=== PATIENT | male | born 1935 | race Caucasian/White ===

== ENCOUNTER 2016-12-04 20:05 | Inpatient (IN) | payer MEDICARE ==
[~2016-12-04] VITALS: Ht 162.6 cm; Wt 72.2 kg
[~2016-12-04 20:05] MED LIST: ALBU18HF INH; ALBU8.5H3 INH; ASPI-515 PO; ASPI-770 PO; ATOR10TA PO; ATOR10TA9 PO; CHOL10003 PO; CHOL20003 PO; DOCU-30 PO; GLIP5TAB10 PO; HYDR25TA6 PO; LEVO100T PO; LEVO100T5 PO; LOSA1TAB17 PO; LOSA50TA2 PO; METF500T4 PO; METO-93 PO; OMEP-110 PO; PANT40TA5 PO; POLY17PO5 PO; SIMV10TA3 PO; TOPI25CA PO
[2016-12-04] MEDS ORDERED: MECLIZINE CHEWABLE 25 MG TAB PO ONE (22:00)
[2016-12-04 22:31] LABS: BLOOD UREA NITROGEN 9 mg/dL (7-18)
[2016-12-04 22:39] LABS: IS PT STATUS REG ER OR PRE ER? YES
[2016-12-05] MEDS ORDERED: DOCUSATE 100 MG CAPSULE PO PRN (01:30)
[2016-12-05] MEDS ORDERED: TEMPLATE NON-FORMULARY MED. (Albuterol Sulfate (Ventolin Hfa) 2 PUFF(S)) INH PRN (01:30)
[2016-12-05] MEDS ORDERED: ALBUTEROL SULFATE 2.5 MG/3 ML HHN PRN (01:30)
[2016-12-05] MEDS ORDERED: ONDANSETRON 2MG/ML, 2ML IVPush PRN (01:30)
[2016-12-05 02:00] VITALS: BP 140/93
[2016-12-05] MEDS: SODIUM CHLORIDE 0.9% 1,000 ML IV SCH ×3 (03:31→23:37)
[2016-12-05 04:03] VITALS: BP 140/93
[2016-12-05] MEDS: ENOXAPARIN 40 MG/0.4 ML SQ SCH (06:02)
[2016-12-05] MEDS: LEVOTHYROXINE 100 MCG TABLET PO SCH (06:02)
[2016-12-05 06:06] LABS: IS PT STATUS REG ER OR PRE ER? NO
[2016-12-05 07:49] VITALS: BP 144/83
[2016-12-05] MEDS ORDERED: CHOLECALCIFEROL 1,000 UNIT TABLET PO SCH (09:00)
[2016-12-05] MEDS: HYDROCHLOROTHIAZIDE 25 MG TABLET PO SCH (09:42)
[2016-12-05] MEDS: ASPIRIN 81 MG TABLET EC PO SCH (09:42)
[2016-12-05] MEDS: LOSARTAN 50MG TABLET PO SCH (09:42)
[2016-12-05] MEDS: CHOLECALCIFEROL 1,000 UNIT TABLET PO SCH ×3 (09:42→21:22)
[2016-12-05] MEDS: OMEPRAZOLE 20 MG CAPSULE.DR PO SCH ×2 (09:42→21:22)
[2016-12-05] MEDS: METOPROLOL SUCCINATE 50 MG TAB.ER.24H PO SCH (09:42)
[2016-12-05 11:02] LABS: IS PT STATUS REG ER OR PRE ER? NO
[2016-12-05] MEDS: ACETAMINOPHEN 325 MG TABLET PO PRN (12:39)
[2016-12-05 12:58] VITALS: BP 161/94
[2016-12-05 20:42] VITALS: BP 137/80
[2016-12-05] MEDS: SIMVASTATIN 10 MG TABLET PO SCH (21:22)
[2016-12-06 02:15] VITALS: BP 143/83
[2016-12-06 05:13] LABS: BLOOD UREA NITROGEN 10 mg/dL (7-18)
[2016-12-06] MEDS: LEVOTHYROXINE 100 MCG TABLET PO SCH (05:27)
[2016-12-06] MEDS: ENOXAPARIN 40 MG/0.4 ML SQ SCH (05:27)
[2016-12-06 07:41] VITALS: BP 166/89
[2016-12-06] MEDS: SODIUM CHLORIDE 0.9% 1,000 ML IV SCH ×2 (09:35→20:34)
[2016-12-06] MEDS: CHOLECALCIFEROL 1,000 UNIT TABLET PO SCH ×3 (09:43→20:34)
[2016-12-06] MEDS: METOPROLOL SUCCINATE 50 MG TAB.ER.24H PO SCH (09:44)
[2016-12-06] MEDS: HYDROCHLOROTHIAZIDE 25 MG TABLET PO SCH (09:44)
[2016-12-06] MEDS: OMEPRAZOLE 20 MG CAPSULE.DR PO SCH ×2 (09:44→20:34)
[2016-12-06] MEDS: ASPIRIN 81 MG TABLET EC PO SCH (09:46)
[2016-12-06] MEDS: LOSARTAN 50MG TABLET PO SCH (09:46)
[2016-12-06] MEDS: ACETAMINOPHEN 325 MG TABLET PO PRN (09:48)
[2016-12-06] MEDS: methylPREDNISolone 4mg DOSE PACK PO SCH (13:10)
[2016-12-06 13:46] VITALS: BP 169/88
[2016-12-06 20:00] VITALS: BP 149/75
[2016-12-06] MEDS: SIMVASTATIN 10 MG TABLET PO SCH (20:34)
[2016-12-07 02:00] VITALS: BP 155/81
[2016-12-07] MEDS: ENOXAPARIN 40 MG/0.4 ML SQ SCH (05:18)
[2016-12-07] MEDS: SODIUM CHLORIDE 0.9% 1,000 ML IV SCH ×2 (05:18→15:48)
[2016-12-07] MEDS: LEVOTHYROXINE 100 MCG TABLET PO SCH (05:18)
[2016-12-07 07:03] VITALS: BP 155/80
[2016-12-07] MEDS: ASPIRIN 81 MG TABLET EC PO SCH (08:07)
[2016-12-07] MEDS: LOSARTAN 50MG TABLET PO SCH (08:07)
[2016-12-07] MEDS: OMEPRAZOLE 20 MG CAPSULE.DR PO SCH ×2 (08:08→21:04)
[2016-12-07] MEDS: CHOLECALCIFEROL 1,000 UNIT TABLET PO SCH ×3 (08:08→21:04)
[2016-12-07] MEDS: HYDROCHLOROTHIAZIDE 25 MG TABLET PO SCH (08:08)
[2016-12-07] MEDS: METOPROLOL SUCCINATE 50 MG TAB.ER.24H PO SCH (08:34)
[2016-12-07] MEDS ORDERED: GADOBUTROL 7.5 MMOL/7.5 ML PFS ONE (13:48)
[2016-12-07 14:29] VITALS: BP 151/78
[2016-12-07 18:45] VITALS: BP 162/86
[2016-12-07] MEDS: SIMVASTATIN 10 MG TABLET PO SCH (21:04)
[2016-12-07] MEDS: methylPREDNISolone 4mg DOSE PACK PO SCH (21:04)
[2016-12-08 00:49] VITALS: BP 168/88
[2016-12-08] MEDS: SODIUM CHLORIDE 0.9% 1,000 ML IV SCH (01:33)
[2016-12-08] MEDS: LEVOTHYROXINE 100 MCG TABLET PO SCH (05:28)
[2016-12-08] MEDS: ENOXAPARIN 40 MG/0.4 ML SQ SCH (05:28)
[2016-12-08 05:33] LABS: BLOOD UREA NITROGEN 15 mg/dL (7-18)
[2016-12-08 08:04] VITALS: BP 177/92
[2016-12-08] MEDS: methylPREDNISolone 4mg DOSE PACK PO SCH (08:18)
[2016-12-08] MEDS: ASPIRIN 81 MG TABLET EC PO SCH (08:19)
[2016-12-08] MEDS: LOSARTAN 50MG TABLET PO SCH (08:20)
[2016-12-08] MEDS: HYDROCHLOROTHIAZIDE 25 MG TABLET PO SCH (08:20)
[2016-12-08] MEDS: CHOLECALCIFEROL 1,000 UNIT TABLET PO SCH (08:20)
[2016-12-08] MEDS: OMEPRAZOLE 20 MG CAPSULE.DR PO SCH (08:20)
[2016-12-08] MEDS ORDERED: METOPROLOL SUCCINATE 25 MG TAB.ER.24H PO SCH (09:00)
[2016-12-08] MEDS ORDERED: TRAM50TA2 PO (10:35)
[2016-12-08] MEDS ORDERED: METH4TAB6 PO (10:35)
[2016-12-08] MEDS ORDERED: METO25TA91 PO (10:35)
== END 2016-12-08 14:01 | DRG 552 ==
LOC: ED 23:59 → EDIP 12-05 01:05 → 4EST 12-05 02:10
PROVIDERS: ADMIT Hospitalist; ATTEND Hospitalist
DX: M48.06 Spinal stenosis, lumbar region (principal); I24.8 Other forms of acute ischemic heart disease; M48.50XA Collapsed vertebra, not elsewhere classified, site unspecified, initial encounter for fracture; I10 Essential (primary) hypertension; E78.5 Hyperlipidemia, unspecified; E03.9 Hypothyroidism, unspecified; E11.9 Type 2 diabetes mellitus without complications; E78.00 Pure hypercholesterolemia, unspecified; H91.10 Presbycusis, unspecified ear; K21.9 Gastro-esophageal reflux disease without esophagitis; K44.9 Diaphragmatic hernia without obstruction or gangrene; K57.90 Diverticulosis of intestine, part unspecified, without perforation or abscess without bleeding; R00.1 Bradycardia, unspecified; M48.07 Spinal stenosis, lumbosacral region; M25.78 Osteophyte, vertebrae; N28.1 Cyst of kidney, acquired; Z87.442 Personal history of urinary calculi; Z90.49 Acquired absence of other specified parts of digestive tract; M51.16 Intervertebral disc disorders with radiculopathy, lumbar region; T44.7X5A Adverse effect of beta-adrenoreceptor antagonists, initial encounter
CPT/HCPCS: 36415; 71020; 72131; 72158; 80048; 82040; 84484; 85025; 93005; A9585; J1650; J7509; J7030

== ENCOUNTER 2017-06-29 19:10 | Inpatient (IN) | payer MEDICARE, MEDICAID ==
[~2017-06-29] VITALS: Ht 165.1 cm; Wt 72.6 kg
[~2017-06-29 19:10] MED LIST changes: -ALBU8.5H3 INH; +ALBU8.5H8 INH; +CHOL2000 PO; -CHOL20003 PO; +DOCU-131 PO; -DOCU-30 PO; -LOSA1TAB17 PO; +LOSA1TAB22 PO; +METH4TAB6 PO; +METO25TA91 PO; +TRAM50TA2 PO
[2017-06-29] MEDS ORDERED: FAMO-79 PO (19:56)
[2017-06-29] MEDS ORDERED: QUET25TA PO (19:56)
[2017-06-29 19:59] LABS: HEMATOCRIT 42.6 % (39.2-51.8); HEMOGLOBIN 14.5 g/dL (13.7-18.0); WHITE BLOOD COUNT 7.8 x10^3/uL (3.4-10)
[2017-06-29] MEDS ORDERED: SODIUM CHLORIDE 0.9% 1,000ML IVBOLUS ONE (20:00)
[2017-06-29 20:09] LABS: BLOOD UREA NITROGEN 20 mg/dL (7-18)
[2017-06-29 20:15] LABS: ASPARTATE AMINO TRANSFERASE 12 U/L (15-37); IS PT STATUS REG ER OR PRE ER? YES
[2017-06-29] MEDS ORDERED: OMNIPAQUE 350 MG/ML, 100ML BOTTLE ONE (21:33)
[2017-06-29] MEDS: SODIUM CHLORIDE 0.9% 1,000 ML IV SCH (22:51)
[2017-06-29] MEDS ORDERED: ONDANSETRON 2MG/ML, 2ML IVPush PRN (23:00)
[2017-06-29] MEDS ORDERED: DOCUSATE 100 MG CAPSULE PO PRN (23:00)
[2017-06-29] MEDS ORDERED: ACETAMINOPHEN 325 MG TABLET PO PRN (23:00)
[2017-06-29 23:07] VITALS: BP 141/88
[2017-06-29] MEDS ORDERED: POTASSIUM CHLORIDE 20 MEQ TAB.ER.PRT PO ONE (23:30)
[2017-06-29] MEDS: FAMOTIDINE 20 MG TABLET PO SCH (23:40)
[2017-06-29] MEDS: HYDROCHLOROTHIAZIDE 25 MG TABLET PO SCH (23:40)
[2017-06-29] MEDS: HEPARIN 5,000 UNITS/ML, 1ML SQ SCH (23:40)
[2017-06-30 02:06] VITALS: BP 131/74
[2017-06-30] MEDS: LEVOTHYROXINE 100 MCG TABLET PO SCH (05:40)
[2017-06-30 07:19] LABS: IS PT STATUS REG ER OR PRE ER? NO
[2017-06-30 07:39] VITALS: BP 121/72
[2017-06-30] MEDS ORDERED: REGADENOSON 0.4 MG/5 ML SYRINGE ONE (07:45)
[2017-06-30] MEDS: HYDROCHLOROTHIAZIDE 25 MG TABLET PO SCH (08:03)
[2017-06-30] MEDS: FAMOTIDINE 20 MG TABLET PO SCH (08:03)
[2017-06-30] MEDS: HEPARIN 5,000 UNITS/ML, 1ML SQ SCH ×3 (08:03→23:14)
[2017-06-30] MEDS: LOSARTAN 50MG TABLET PO SCH (08:04)
[2017-06-30] MEDS: SODIUM CHLORIDE 0.9% 1,000 ML IV SCH (10:18)
[2017-06-30] MEDS ORDERED: DEXTROSE 50%, 50ML SYRINGE IVPush PRN (12:30)
[2017-06-30] MEDS ORDERED: ALBUTEROL HFA 90 MCG/SPRAY INH PRN (12:30)
[2017-06-30] MEDS ORDERED: POLYETHYLENE GLYCOL 17 GM PACKET PO PRN (12:30)
[2017-06-30] MEDS ORDERED: GLUCAGON 1 MG IM PRN (12:30)
[2017-06-30] MEDS ORDERED: DEXTROSE 4 GM TAB.CHEW PO PRN (12:30)
[2017-06-30] MEDS: INSULIN ASPART 100 UNITS/ML, PEN SQ-INSULIN SCH ×3 (13:00→20:48)
[2017-06-30 14:15] VITALS: BP 108/65
[2017-06-30] MEDS ORDERED: INSULIN ASPART 100 UNITS/ML, PEN SQ-INSULIN SCH (16:00)
[2017-06-30 19:52] VITALS: BP 108/59
[2017-06-30] MEDS: SODIUM CHLORIDE FLUSH 10ML SYR IVF SCH (20:47)
[2017-06-30] MEDS: QUETIAPINE 25MG TABLET PO SCH (20:47)
[2017-06-30] MEDS: ATORVASTATIN 10 MG TABLET PO SCH (20:47)
[2017-06-30] MEDS: CHOLECALCIFEROL 1,000 UNIT TABLET PO SCH (20:47)
[2017-06-30] MEDS: TOPIRAMATE 25 MG TABLET PO SCH (20:47)
[2017-06-30] MEDS: OMEPRAZOLE 20 MG CAPSULE.DR PO SCH (20:47)
[2017-07-01 00:35] VITALS: BP 110/58
[2017-07-01 02:05] LABS: IS PT STATUS REG ER OR PRE ER? NO
[2017-07-01] MEDS: HEPARIN 5,000 UNITS/ML, 1ML SQ SCH ×3 (06:23→22:00)
[2017-07-01] MEDS: LEVOTHYROXINE 100 MCG TABLET PO SCH (06:23)
[2017-07-01 06:27] LABS: BLOOD UREA NITROGEN 15 mg/dL (7-18)
[2017-07-01 06:36] LABS: IS PT STATUS REG ER OR PRE ER? NO
[2017-07-01] MEDS: INSULIN ASPART 100 UNITS/ML, PEN SQ-INSULIN SCH ×4 (07:00→21:00)
[2017-07-01 08:07] VITALS: BP 117/67
[2017-07-01] MEDS: METOPROLOL SUCCINATE 25 MG TAB.ER.24H PO SCH (09:07)
[2017-07-01] MEDS: LOSARTAN 50MG TABLET PO SCH (09:07)
[2017-07-01] MEDS: HYDROCHLOROTHIAZIDE 25 MG TABLET PO SCH (09:08)
[2017-07-01] MEDS: OMEPRAZOLE 20 MG CAPSULE.DR PO SCH ×2 (09:08→21:52)
[2017-07-01] MEDS: ASPIRIN 81 MG TABLET EC PO SCH (09:08)
[2017-07-01] MEDS: CHOLECALCIFEROL 1,000 UNIT TABLET PO SCH ×2 (09:08→21:52)
[2017-07-01] MEDS: TOPIRAMATE 25 MG TABLET PO SCH ×2 (09:08→21:52)
[2017-07-01] MEDS: SODIUM CHLORIDE FLUSH 10ML SYR IVF SCH ×2 (09:08→21:52)
[2017-07-01] MEDS ORDERED: POTASSIUM CHLORIDE 20 MEQ TAB.ER.PRT PO ONE (09:30)
[2017-07-01 13:48] VITALS: BP 110/72
[2017-07-01] MEDS: TAMSULOSIN 0.4 MG CAP.ER.24H PO SCH (16:21)
[2017-07-01 19:27] VITALS: BP 102/53
[2017-07-01] MEDS: ATORVASTATIN 10 MG TABLET PO SCH (21:52)
[2017-07-01] MEDS: QUETIAPINE 25MG TABLET PO SCH (21:52)
[2017-07-02 01:34] VITALS: BP 97/58
[2017-07-02 05:27] VITALS: BP 105/67
[2017-07-02] MEDS: LEVOTHYROXINE 100 MCG TABLET PO SCH (05:28)
[2017-07-02] MEDS: HEPARIN 5,000 UNITS/ML, 1ML SQ SCH ×3 (05:28→20:08)
[2017-07-02] MEDS: INSULIN ASPART 100 UNITS/ML, PEN SQ-INSULIN SCH ×4 (07:00→20:19)
[2017-07-02 07:50] VITALS: BP 102/63
[2017-07-02] MEDS: HYDROCHLOROTHIAZIDE 25 MG TABLET PO SCH (08:03)
[2017-07-02] MEDS: TOPIRAMATE 25 MG TABLET PO SCH ×2 (08:03→20:07)
[2017-07-02] MEDS: TAMSULOSIN 0.4 MG CAP.ER.24H PO SCH (08:03)
[2017-07-02] MEDS: CHOLECALCIFEROL 1,000 UNIT TABLET PO SCH ×2 (08:03→20:08)
[2017-07-02] MEDS: ASPIRIN 81 MG TABLET EC PO SCH (08:03)
[2017-07-02] MEDS: OMEPRAZOLE 20 MG CAPSULE.DR PO SCH ×2 (08:03→20:07)
[2017-07-02] MEDS: SODIUM CHLORIDE FLUSH 10ML SYR IVF SCH ×2 (08:04→20:07)
[2017-07-02] MEDS: LOSARTAN 50MG TABLET PO SCH (08:04)
[2017-07-02] MEDS: METOPROLOL SUCCINATE 25 MG TAB.ER.24H PO SCH (08:04)
[2017-07-02 14:11] VITALS: BP 86/57
[2017-07-02 20:02] VITALS: BP_SYST 77; BP_SYST 88; BP_DIAS 49; BP_DIAS 52
[2017-07-02] MEDS: QUETIAPINE 25MG TABLET PO SCH (20:07)
[2017-07-02] MEDS: ATORVASTATIN 10 MG TABLET PO SCH (20:08)
[2017-07-03 01:55] VITALS: BP 93/56
[2017-07-03] MEDS: HEPARIN 5,000 UNITS/ML, 1ML SQ SCH ×3 (06:06→22:23)
[2017-07-03] MEDS: LEVOTHYROXINE 100 MCG TABLET PO SCH (06:07)
[2017-07-03 07:27] VITALS: BP 110/70
[2017-07-03] MEDS: INSULIN ASPART 100 UNITS/ML, PEN SQ-INSULIN SCH ×5 (08:56→22:22)
[2017-07-03] MEDS: TOPIRAMATE 25 MG TABLET PO SCH ×2 (09:05→22:22)
[2017-07-03] MEDS: CHOLECALCIFEROL 1,000 UNIT TABLET PO SCH ×2 (09:05→22:22)
[2017-07-03] MEDS: METOPROLOL SUCCINATE 25 MG TAB.ER.24H PO SCH (09:06)
[2017-07-03] MEDS: HYDROCHLOROTHIAZIDE 25 MG TABLET PO SCH (09:06)
[2017-07-03] MEDS: LOSARTAN 50MG TABLET PO SCH (09:06)
[2017-07-03] MEDS: ASPIRIN 81 MG TABLET EC PO SCH (09:06)
[2017-07-03] MEDS: TAMSULOSIN 0.4 MG CAP.ER.24H PO SCH (09:06)
[2017-07-03] MEDS: SODIUM CHLORIDE FLUSH 10ML SYR IVF SCH ×2 (09:07→22:21)
[2017-07-03] MEDS: OMEPRAZOLE 20 MG CAPSULE.DR PO SCH ×2 (09:07→22:21)
[2017-07-03 13:03] VITALS: BP 91/55
[2017-07-03 20:28] VITALS: BP 92/56
[2017-07-03] MEDS: ATORVASTATIN 10 MG TABLET PO SCH (22:21)
[2017-07-03] MEDS: QUETIAPINE 25MG TABLET PO SCH (22:22)
[2017-07-04 01:58] VITALS: BP 90/54
[2017-07-04] MEDS: LEVOTHYROXINE 100 MCG TABLET PO SCH (06:22)
[2017-07-04] MEDS: HEPARIN 5,000 UNITS/ML, 1ML SQ SCH ×3 (06:22→22:26)
[2017-07-04] MEDS: INSULIN ASPART 100 UNITS/ML, PEN SQ-INSULIN SCH ×4 (07:29→20:08)
[2017-07-04 07:30] VITALS: BP 95/60
[2017-07-04] MEDS: HYDROCHLOROTHIAZIDE 25 MG TABLET PO SCH (08:35)
[2017-07-04] MEDS: METOPROLOL SUCCINATE 25 MG TAB.ER.24H PO SCH (08:35)
[2017-07-04] MEDS: LOSARTAN 50MG TABLET PO SCH (08:35)
[2017-07-04] MEDS: TAMSULOSIN 0.4 MG CAP.ER.24H PO SCH (08:49)
[2017-07-04] MEDS: CHOLECALCIFEROL 1,000 UNIT TABLET PO SCH ×2 (08:49→20:06)
[2017-07-04] MEDS: TOPIRAMATE 25 MG TABLET PO SCH ×2 (08:49→20:06)
[2017-07-04] MEDS: OMEPRAZOLE 20 MG CAPSULE.DR PO SCH ×2 (08:49→20:06)
[2017-07-04] MEDS: ASPIRIN 81 MG TABLET EC PO SCH (08:49)
[2017-07-04] MEDS: SODIUM CHLORIDE FLUSH 10ML SYR IVF SCH ×2 (08:49→20:06)
[2017-07-04] MEDS ORDERED: LOSA50TA2 PO (12:04)
[2017-07-04] MEDS ORDERED: TAMS-11 PO (12:04)
[2017-07-04 13:57] VITALS: BP 85/52
[2017-07-04 20:00] VITALS: BP 98/57
[2017-07-04] MEDS: ATORVASTATIN 10 MG TABLET PO SCH (20:06)
[2017-07-04] MEDS: QUETIAPINE 25MG TABLET PO SCH (20:06)
[2017-07-05 01:16] VITALS: BP 94/60
[2017-07-05] MEDS: LEVOTHYROXINE 100 MCG TABLET PO SCH (06:18)
[2017-07-05] MEDS: HEPARIN 5,000 UNITS/ML, 1ML SQ SCH ×3 (06:18→22:13)
[2017-07-05 07:54] VITALS: BP 108/66
[2017-07-05] MEDS: CHOLECALCIFEROL 1,000 UNIT TABLET PO SCH ×2 (08:00→19:43)
[2017-07-05] MEDS: TOPIRAMATE 25 MG TABLET PO SCH ×2 (08:00→19:44)
[2017-07-05] MEDS: TAMSULOSIN 0.4 MG CAP.ER.24H PO SCH (08:00)
[2017-07-05] MEDS: METOPROLOL SUCCINATE 25 MG TAB.ER.24H PO SCH (08:00)
[2017-07-05] MEDS: INSULIN ASPART 100 UNITS/ML, PEN SQ-INSULIN SCH ×4 (08:00→22:14)
[2017-07-05] MEDS: ASPIRIN 81 MG TABLET EC PO SCH (08:00)
[2017-07-05] MEDS: OMEPRAZOLE 20 MG CAPSULE.DR PO SCH ×2 (08:00→19:44)
[2017-07-05] MEDS: SODIUM CHLORIDE FLUSH 10ML SYR IVF SCH ×2 (08:01→19:44)
[2017-07-05] MEDS ORDERED: LOSARTAN 50MG TABLET PO SCH (09:00)
[2017-07-05 13:26] VITALS: BP 82/60
[2017-07-05] MEDS ORDERED: SODIUM CHLORIDE 0.9%, 500ML IVBOLUS ONE (14:30)
[2017-07-05 14:32] VITALS: BP 104/51
[2017-07-05] MEDS ORDERED: POTASSIUM CHLORIDE 20 MEQ TAB.ER.PRT PO ONE (15:00)
[2017-07-05 15:36] LABS: BLOOD UREA NITROGEN 28 mg/dL (7-18)
[2017-07-05 19:07] VITALS: BP 109/66
[2017-07-05] MEDS: metFORMIN 500 MG TABLET PO SCH (19:43)
[2017-07-05] MEDS: QUETIAPINE 25MG TABLET PO SCH (19:44)
[2017-07-05] MEDS: ATORVASTATIN 10 MG TABLET PO SCH (19:44)
[2017-07-05 23:45] VITALS: BP 107/71
[2017-07-06 04:40] LABS: HEMATOCRIT 42.1 % (39.2-51.8); HEMOGLOBIN 14.2 g/dL (13.7-18.0); WHITE BLOOD COUNT 6.7 x10^3/uL (3.4-10)
[2017-07-06 04:42] LABS: BLOOD UREA NITROGEN 28 mg/dL (7-18)
[2017-07-06 04:44] VITALS: BP 101/66
[2017-07-06] MEDS: LEVOTHYROXINE 100 MCG TABLET PO SCH (05:46)
[2017-07-06] MEDS: HEPARIN 5,000 UNITS/ML, 1ML SQ SCH ×2 (05:47→14:00)
[2017-07-06] MEDS: INSULIN ASPART 100 UNITS/ML, PEN SQ-INSULIN SCH ×3 (06:48→16:00)
[2017-07-06 07:12] VITALS: BP_SYST 105; BP_SYST 136; BP_DIAS 65; BP_DIAS 86
[2017-07-06] MEDS: CHOLECALCIFEROL 1,000 UNIT TABLET PO SCH (08:59)
[2017-07-06] MEDS: TOPIRAMATE 25 MG TABLET PO SCH (08:59)
[2017-07-06] MEDS: METOPROLOL SUCCINATE 25 MG TAB.ER.24H PO SCH (08:59)
[2017-07-06] MEDS: TAMSULOSIN 0.4 MG CAP.ER.24H PO SCH (08:59)
[2017-07-06] MEDS: OMEPRAZOLE 20 MG CAPSULE.DR PO SCH (08:59)
[2017-07-06] MEDS: metFORMIN 500 MG TABLET PO SCH (08:59)
[2017-07-06] MEDS: ASPIRIN 81 MG TABLET EC PO SCH (09:00)
[2017-07-06] MEDS: SODIUM CHLORIDE FLUSH 10ML SYR IVF SCH (09:00)
[2017-07-06 13:08] VITALS: BP 110/65
== END 2017-07-06 16:22 | DRG 282 ==
LOC: ED 22:07 → 5SO 22:31 → INTOOBSV 22:31 → 5SO 22:53 → OBSVTOIN 07-01 14:47 → 3NW 07-05 23:30
PROVIDERS: ADMIT Surgery; ATTEND Surgery
DX: I21.4 Non-ST elevation (NSTEMI) myocardial infarction (principal); I27.20 Pulmonary hypertension, unspecified; I95.9 Hypotension, unspecified; E11.9 Type 2 diabetes mellitus without complications; I11.9 Hypertensive heart disease without heart failure; E03.9 Hypothyroidism, unspecified; E87.6 Hypokalemia; E78.00 Pure hypercholesterolemia, unspecified; H91.90 Unspecified hearing loss, unspecified ear; K44.9 Diaphragmatic hernia without obstruction or gangrene; M19.90 Unspecified osteoarthritis, unspecified site; R29.6 Repeated falls; R13.10 Dysphagia, unspecified; R07.89 Other chest pain; M79.672 Pain in left foot; K21.9 Gastro-esophageal reflux disease without esophagitis; Z87.442 Personal history of urinary calculi; Z59.0 Homelessness; Z87.891 Personal history of nicotine dependence; Z79.4 Long term (current) use of insulin; Z90.49 Acquired absence of other specified parts of digestive tract
CPT/HCPCS: 36415; 71010; 74177; 78452; 80048; 80053; 81003; 82962; 83735; 83880; 84484; 85025; 93005; 93017; 93306; G0378; J1644; J1815; J2785; Q9967; A9502; C9898; J7030; J7040